=== PATIENT | male | born 1965 | race Two or more races ===

== ENCOUNTER → 2019-04-02 | Day surgery (SDC) | payer BC ==
[~2019-04-02] MED LIST: AMLODIPINE BESY10 MG PO; FENTANYL CITRATE/PF 100MCG/2 ML INJ ONE; FINASTERIDE5 MG PO; GEMFIBROZIL600 MG PO; HYDROCHLOROTHIA25 MG PO; HYOSCYAMINE 0.125 MG TAB ONE; LOVASTATIN40 MG PO; MIDAZOLAM HCL 2 MG/2 ML VIAL ONE; OMEPRAZOLE40 MG PO; PROPOFOL IV EMULSION 10 MG/ML 50 ML VIAL ONE; PROPRANOLOL HCL80 MG PO
--- OUTSIDE RECORDS SUMMARY | 2019-04-02 06:25 | XMS REPORT | Continuity of Care Document ---
Author Author [employer] Organization [employer] Address Unknown Phone Unavailable Care Team Providers Care Bus Mechanic Name Role Phone [employer] Unavailable Unavailable Problems No Data Provided for This Section Medications No Data Provided for This Section Allergies, Adverse Reactions, Alerts No Known Medication Allergies Immunizations No Data Provided for This Section Results No Data Provided for This Section Pathology Reports No Data Provided for This Section Diagnostic Reports No Data Provided for This Section Consultation Notes No Data Provided for This Section Discharge Summaries No Data Provided for This Section History and Physicals No Data Provided for This Section Vital Signs No Data Provided for This Section Encounters Location Location Details Encounter Type Encounter Number Reason For Visit Attending Provider ADM Date DC Date Status Source Outpatient [id number] TIM CANDELARIA 05/18/2016 Active [facility] Outpatient [id number] TIM CANDELARIA 08/17/2016 Active [facility] Procedures No Data Provided for This Section Assessment and Plan No Data Provided for This Section Plan of Care No Data Provided for This Section Social History No Data Provided for This Section Family History No Data Provided for This Section Advance Directives No Data Provided for This Section Functional Status No Data Provided for This Section
--- NOTE | 2019-04-02 07:05 | NUR ---
SPIRITUAL CARE - Pre-Surgery Assessment: Pt in bed. Pt reported supportive attention from family and friends. Intervention: I provided pastoral presence, hospitality, and sympathetic listening. I acquainted pt with availability of hosiery looper while hospitalized. Outcome: Pt expressed appreciation for visit. No need for follow up indicated at this time. JEET Barakatlain Spiritual Care Department O: [phone] Pager: [phone] ([phone] number calling from)
[2019-04-02 09:20] VITALS: BP 139/87
--- NOTE | 2019-04-02 15:58 | Operative Report ---
DATE OF PROCEDURE: 04/02/2019 SURGEON: Felix Sibley MD PROCEDURES: Colonoscopy and polypectomy. INDICATIONS FOR COLONOSCOPY: Colorectal cancer screening. MEDICATIONS: The patient was done under MAC, please see anesthesiologist's note. PROCEDURE IN DETAIL: With the patient in left lateral decubitus position, a flexible fiberoptic Olympus colonoscope was inserted into the rectum with ease and advanced all the way to the cecum. Prep overall was suboptimal, but visualization was fair. The scope was then withdrawn slowly and mucosa overlying the cecum grossly appeared to be within normal limits. A single diverticulum was noted in the ascending colon. The transverse colon appeared to be within normal limits. Two polyps up to 1 cm in size were removed per snare electrocautery from the descending colon and one polypectomy site was hemoclipped. A minute polyp was hot biopsied from the sigmoid and an additional minute polyp was hot biopsied from the rectum. The scope was then retroflexed into the distal rectum and moderate-sized internal hemorrhoids were noted, none of which was actively bleeding. The scope was then straightened out, it was subsequently withdrawn, and the patient tolerated the procedure well. Anal lesions? Condyloma was noted. IMPRESSION: 1. Single diverticulum, ascending colon. 2. Descending colon polyps x2, up to 1 cm in size, removed per snare electrocautery, one polypectomy site hemoclipped. 3. Minute polyp, sigmoid colon removed per hot biopsy forceps. 4. Rectal polyp, minute, hot biopsied. 5. Internal hemorrhoids, none actively bleeding. 6. ? Condyloma. Anal area. PLAN: Follow up histology. Initiate high-fiber, low-fat diet. Initiate high-fiber supplement. Referred to Dr. Popeye Barrera for removal of perianal lesions. The patient might benefit from a followup colonoscopy in 3 years. Felix Sibley MD [facility] /[id number] cc: Dr. Vianey Burr
== END | disposition home or self-care (01) ==
LOC: ENDO 06:23
PROVIDERS: ATTEND Internal Medicine Gastroenterology
DX: Z12.11 Encounter for screening for malignant neoplasm of colon (principal); D12.4 Benign neoplasm of descending colon; K62.1 Rectal polyp; K57.30 Diverticulosis of large intestine without perforation or abscess without bleeding; K64.8 Other hemorrhoids; K21.9 Gastro-esophageal reflux disease without esophagitis; N40.0 Benign prostatic hyperplasia without lower urinary tract symptoms; R03.0 Elevated blood-pressure reading, without diagnosis of hypertension; E78.6 Lipoprotein deficiency; I10 Essential (primary) hypertension
CPT/HCPCS: 45384; 45385; 93005; J2250; J2704; J3010; 45378

== ENCOUNTER 2021-08-26 01:11 | Emergency (ER) | payer SELFPAY ==
[~2021-08-26] VITALS: Ht 177.8 cm; Wt 76.2 kg
[~2021-08-26 01:11] MED LIST changes: -FENTANYL CITRATE/PF 100MCG/2 ML INJ ONE; -HYOSCYAMINE 0.125 MG TAB ONE; -MIDAZOLAM HCL 2 MG/2 ML VIAL ONE; -PROPOFOL IV EMULSION 10 MG/ML 50 ML VIAL ONE
[2021-08-26 02:46] LABS: BASOPHILS % 0.7 % (0.0-1.0); EOSINOPHILS % 1.7 % (0.0-6.0); HEMATOCRIT 35.4 % (38.2-49.6); HEMOGLOBIN 11.8 g/dL (14.0-18.0); MEAN CORPUSCULAR HEMOGLOBIN 31.6 pg (28-32); MEAN CORPUSCULAR HGB CONC 33.3 g/dL (31-35); MEAN CORPUSCULAR VOLUME 94.7 fL (81-99); MONOCYTES % 12.6 % (4.4-11.3); NEUTROPHILS # (AUTO) 2.2 (2.1-6.9); NEUTROPHILS % 51.8 % (38.7-80.0); PLATELET COUNT 64 x10e3/uL (140-360); RED BLOOD COUNT 3.74 x10e6/uL (4.3-5.7); RED CELL DISTRIBUTION WIDTH 13.7 % (11.7-14.4)
[2021-08-26 02:47] LABS: EOSINOPHILS # (AUTO) 0.1 (0.0-0.4); LYMPHOCYTES # (AUTO) 1.4 (1.0-3.2); MONOCYTES # (AUTO) 0.5 (0.2-0.8)
[2021-08-26] MEDS ORDERED: MULTIVITAMINS- 12 INJECTION 10 ML, FOLIC ACID MDV 1 MG, THIAMINE HCL INJ 100 MG in SODI... IV ONE (03:00)
[2021-08-26 03:03] LABS: MAGNESIUM 1.2 MG/DL (1.3-2.1)
[2021-08-26 03:07] LABS: ALANINE AMINOTRANSFERASE 35 IU/L (0-55); ALBUMIN 3.2 g/dL (3.5-5.0); ALBUMIN/GLOBULIN RATIO 0.7 (0.8-2.0); ALKALINE PHOSPHATASE 146 IU/L (40-150); ANION GAP 18.6 mmol/L (8-16); BLOOD UREA NITROGEN < 5 mg/dL (7-26); CALCIUM 8.3 mg/dL (8.4-10.2); CARBON DIOXIDE 25 mmol/L (22-29); CHLORIDE 99 mmol/L (98-107); CREATININE, SERUM 0.93 mg/dL (0.72-1.25); EST GLOMERULAR FILTRATION RATE 85 ML/MIN (60-); GLUCOSE 102 mg/dL (74-118); POTASSIUM 3.6 mmol/L (3.5-5.1); SODIUM 139 mmol/L (136-145)
[2021-08-26 03:08] LABS: BUN/CREATININE RATIO 5 (6-25)
[2021-08-26] MEDS ORDERED: MAGNESIUM SULF 1GRAM/DEXTROSE 100 ML IV ONE (04:15)
== END 2021-08-26 10:50 | disposition home or self-care (01) ==
LOC: ER 01:15
DX: F10.10 Alcohol abuse, uncomplicated (principal); E83.42 Hypomagnesemia; R53.1 Weakness; I10 Essential (primary) hypertension; E78.5 Hyperlipidemia, unspecified
CPT/HCPCS: 36415; 80053; 80320; 83735; 85025; 93005; 99284; J3411; J7030